=== PATIENT | female | born 1955 | race Caucasian/White ===

== ENCOUNTER 2022-12-11 14:52 | Emergency (ER) | payer OTHER ==
--- NOTE | 2022-12-11 16:08 | ERPHSYRPT ---
- History of Present Illness Time Seen by Provider: 12/11/22 16:08 Source: patient, family Exam Limitations: no limitations Physician History: Patient is a 67-year-old white female who has been sick basically since September. She started with pain in the right ear and the pain radiated from the ear down into the jaw and down into the neck. She developed a cough which has persisted since September she also smoked for 45 years. She has been on 4 different antibiotics for her cough including Levaquin and Augmentin and amoxicillin the other antibiotic is unknown. She has been hoarse and getting worse with her voice since the end of September. She has lost 15 pounds since the illness began. She has had a previous CT scan and is scheduled for another of her chest tomorrow. Timing/Duration: other (Sick since September) Cough Quality/Degree: severe, productive cough Possible Cause: no prior episodes Modifying Factors: Improves With: coughing Associated Symptoms: cough, dizziness, earache, facial pain Allergies/Adverse Reactions: amoxicillin [From Augmentin] Allergy (Verified 12/11/22 15:41) clavulanic acid [From Augmentin] Allergy (Verified 12/11/22 15:41) Home Medications: Albuterol Sulfate [Albuterol Sulfate Hfa] 2 puff PO Q4H PRN PRN 12/11/22 [History] Meclizine HCl 25 mg [Antivert 25 mg] 1 tab PO Q8H PRN PRN 12/11/22 [History] levoFLOXacin [Levofloxacin] 1 tab PO DAILY 12/11/22 [History] oxyBUTYnin chloride [Oxybutynin Chloride] 1 tab PO BID 12/11/22 [History] - Review of Systems Constitutional: Lethargy, Malaise, Weakness, Weight Loss, No Fever, No Chills Eyes: No Symptoms Ears, Nose, & Throat: No Symptoms, Hoarse Respiratory: Cough, No Dyspnea Cardiac: No Chest Pain, No Edema, No Syncope Abdominal/Gastrointestinal: No Abdominal Pain, No Nausea, No Vomiting, No Diarrhea Genitourinary Symptoms: No Dysuria Musculoskeletal: No Back Pain, No Neck Pain Skin: No Rash Neurological: No Dizziness, No Focal Weakness, No Sensory Changes Psychological: No Symptoms Endocrine: No Symptoms All Other Systems: Reviewed and Negative - Nursing Vital Signs Nursing Vital Signs: Initial Vital Signs Temperature 98.4 F 12/11/22 15:44 Pulse Rate 119 H 12/11/22 15:44 Respiratory Rate 19 12/11/22 15:44 Blood Pressure 117/71 12/11/22 15:44 O2 Sat by Pulse Oximetry 96 12/11/22 15:44 Pain Scale Pain Intensity 6 - Physical Exam General Appearance: mild distress, alert, cachetic, thin Eye Exam: PERRL/EOMI, eyes nml inspection Ears, Nose, Throat Exam: normal ENT inspection, TMs normal, pharynx normal, moist mucous membranes Neck Exam: normal inspection, non-tender, supple, full range of motion Respiratory Exam: normal breath sounds, lungs clear, No respiratory distress Cardiovascular Exam: regular rate/rhythm, normal heart sounds, tachycardia Gastrointestinal/Abdomen Exam: soft, No tenderness Back Exam: normal inspection, No CVA tenderness, No vertebral tenderness Extremity Exam: normal inspection, normal range of motion Neurologic Exam: alert, oriented x 3, cooperative, normal mood/affect, sensation nml, No motor deficits Skin Exam: normal color, warm, dry, No rash Lymphatic Exam: No adenopathy SpO2 Interpretation: normal SpO2: 97 O2 Delivery: Room Air - Course Nursing assessment & vital signs reviewed: Yes - CT Exams Soft Tissue Neck CT Interpretation: Tele-radiologist Report Chest CT Interpretation: Tele-radiologist Report Ordered Tests: Active Orders 24 hr Category Date Time Status CHEST WITH CONTRAST [CT] Stat Exams 12/11/22 16:24 Taken NECK WITH CONTRAST [CT] Stat Exams 12/11/22 16:24 Completed - Progress Progress: unchanged Air Movement: good Progress Note: 12/11/22 18:09 Review of records brought by the family indicates that while they were not informed there is a high suspicion of neoplasm with multiple lesions in the lungs we will repeat the CT scan of the chest and we will do a CT of the neck those will be given to her primary care physician and she is presently scheduled to see Dr. Laura fonseca in a few days. The family is now aware of the high probability of a neoplastic problem. Blood Culture(s) Obtained: No Antibiotics given: No Medical Desision Making - Diagnostic Testing Radiological Interpretation: Reviewed by me - Risk of complications The pt has a mod risk of morbidity or mortality based on: Need for minor surgical intervention in patient with know risk factors (Patient will need some sort of biopsy either open or closed to determine the exact nature of the her lung lesions) - Departure Departure Disposition: Home Clinical Impression: Suspected malignant neoplasm of lung Condition: Stable Critical Care Time: No Referrals: MOISES GAMBLE [Primary Care Provider] - Follow up/PCP as directed
--- NOTE | 2022-12-11 17:27 | XRAY ---
Indication: Cough. Right neck pain 2 months. Multiple contiguous axial images obtained through the neck using 80 cc Isovue 370 contrast. Comparison: None Partially visualized distal right paratracheal lymphadenopathy further detailed on same day CT chest with contrast exam. Parotid and submandibular glands are bilaterally symmetric. Supra and infraglottic airway widely patent. Normal epiglottis. Major arteries and veins are normal in course and caliber with mild left carotid bulb arteriosclerotic calcifications. Thyroid gland enhances homogeneously. Visualized osseous structures intact. No suspicious bony lesions. Visualized base of brain demonstrates incompletely visualized right cerebellar enhancing mass measuring at least 2.3 x 1.4 cm worrisome for metastasis. Impression: 1. Distal right paratracheal probable metastatic lymphadenopathy detailed on same day CT chest exam. 2. Incompletely visualized enhancing right cerebellar mass also worrisome for metastasis. MRI brain with contrast may yield further information. 3. Mild left carotid bulb arteriosclerotic calcifications.
[2022-12-11 18:06] VITALS: O2SAT 97
[2022-12-11 18:37] VITALS: BP 119/64; PULSE 99
--- NOTE | 2022-12-12 10:20 | XRAY ---
Indication: Cough. Multiple contiguous axial images obtained through the chest using Isovue 370 contrast. Comparison: CT chest w/o contrast October 26, 2022. Lungs again demonstrates moderate diffuse emphysema mild biapical pleural thickening, and small right lower lobe calcified granuloma. Right upper lobe demonstrates minimally enlarging 1.2 cm noncalcified nodule with again irregular/spiculated margins. This measured previously 9 mm. No infiltrate or effusion. Heart not enlarged. Aorta is normal in course and caliber. A few tiny subcarinal and right hilar calcified nodes. Again prominent paratracheal/mediastinal/right suprahilar lymphadenopathy. Largest is again right paratracheal measuring at least 3.6 x 4.2 x 4.3 cm with effacement of the trachea. Bony thorax intact with minimal jugular changes throughout the spine. Limited upper abdomen demonstrates tiny hepatic/splenic calcified granulomas. Impression: 1. Enlarging suspicious right upper lobe noncalcified nodule as detailed. Malignancy is again of primary concern. Also mediastinal and right suprahilar lymphadenopathy probably metastatic. 2. Chronic findings including pulmonary emphysema and old granulomatous disease.
== END 2022-12-11 18:39 | disposition home or self-care (01) ==
LOC: ED 14:52
DX: R91.8 Other nonspecific abnormal finding of lung field (principal); R05.3 Chronic cough; R49.0 Dysphonia; R63.4 Abnormal weight loss; Z79.899 Other long term (current) drug therapy
CPT/HCPCS: 36000; 70491; 71260; 93005; 99284